=== PATIENT | female | born 1940 | race African-American/Black ===

== ENCOUNTER → 2019-01-28 | Outpatient (CLI) | payer OTHER, MEDICARE ==
[2019-01-28] VITALS (9 sets, daily range): BP systolic 109–146; BP diastolic 44–65
[~2019-01-28] VITALS: Ht 167.6 cm; Wt 72.6 kg
[~2019-01-28] MED LIST: ASPIR 8181 M1 PO; BENICAR20 MG PO; DECADRON6 MG PO; NEURONTIN 300300 M1 PO; POMALYST1 MG PO; POTASSIUM20 PO; ULTRAM50 MG PO; VITAMIN D1000 UNI1 PO
[2019-01-28 09:56] LABS: HEMATOCRIT 32.3 % (37.0-47.0); HEMOGLOBIN 10.8 gm/dL (12.0-15.0); MCH 32.7 pg (26.0-34.0); MCHC 33.5 g/dL (28.0-37.0); MCV 97.4 fL (80.0-100.0); RBC 3.32 mil/uL (4.20-5.00); RDW 16.7 % (10.5-14.5); WBC 5.9 thou/uL (4.0-11.0)
--- NOTE | 2019-01-28 11:59 | NUR ---
PT BACK FROM IR APPROX 1115, PT ALERT, DENIES PAIN. BEVERAGE PROVIDED, VSS, BAND-AID INTACT. WILL CONTINUE TO MONIOR. APPROX 1145 PT C/O NUMBNESS DOWN LEFT BUTTOCK AND LEFT LEG. PC TO DR TOLEDO, AWAITING ADDL ORDERS.
--- NOTE | 2019-01-28 14:51 | NUR ---
PT AMBULATED WITHOUT DIFFICULTY T/O HOLDING AREA, REPORTS SIGNIFICANT IMPROVEMENT IN NUMBNESS. DC INSTRUCTIONS PROVIDED, PORT HEP LOCKED AND REMOVED WITHOUT DIFFICULTY. PT VERBALIZES UNDERSTANDING AND WILL F/U ACCORDINGLY.
== END | disposition home or self-care (01) ==
LOC: CAT 08:30
PROVIDERS: Radiology Diagnostic Radiology
DX: M71.38 Other bursal cyst, other site (principal); I10 Essential (primary) hypertension; G62.9 Polyneuropathy, unspecified; Z85.79 Personal history of other malignant neoplasms of lymphoid, hematopoietic and related tissues; Z98.890 Other specified postprocedural states; Z79.899 Other long term (current) drug therapy; Z79.82 Long term (current) use of aspirin